=== PATIENT | male | born 1945 | race Caucasian/White ===

== ENCOUNTER 2021-03-03 11:38 | Emergency (ER) | payer MEDICARE, OTHER ==
--- NOTE | 2021-03-03 12:40 | EDM.PDOC ---
ED HPI GENERAL MEDICAL PROBLEM - General Chief Complaint: Neuro Symptoms/Deficits Stated Complaint: 1 MONTH POST HORSE ACCIDENT UNSTEADY Time Seen by Provider: 03/03/21 11:50 Source of Information: Reports: Patient, Family History Limitations: Reports: No Limitations, Other (Family reports that the patient has had increased confusion and he is not the best historian.) - History of Present Illness INITIAL COMMENTS - FREE TEXT/NARRATIVE: 75-year-old male presents the emergency department with increased confusion and weakness and an unsteady gait. Pt had horse accident December 29--was seen (and lives) in [place]. Pt states fell off of horse and horse fell onto pt. Pt was unconscious. Pt has frontal and posterior head bleeds. Was seen at the hospital and kept overnight on observation and had a repeat head CT in the morning and family states was discharged to go home as there were no changes. Has been staying with family since February 12--family has noticed pt having unsteady gait, one episode of confusion--was seen in [place]. [id number] has gotten "really bad in last week." [id number] states that pt is "dragging" left leg. Pt slid off of couch yesterday. Patient does admit to taking a blood thinner however he does not know what it is or why he is taking it. Family did not bring current med list with and they are trying to locate it now. Patient denies cardiac history. He denies alcohol use. Denies any blurred vision or double vision. He denies any headache. Denies any ringing in his ears. [ End ] - Related Data Allergies Allergy/AdvReac Type Severity Reaction Status Date / Time rosuvastatin [From Crestor] Allergy Hives Verified 03/03/21 12:01 Home Meds: Home Meds Aspirin 162 mg PO DAILY 03/03/21 [History] Ezetimibe 10 mg PO DAILY 03/03/21 [History] NIFEdipine [Nifedipine ER] 60 mg PO DAILY 03/03/21 [History] RABEprazole Sodium [Aciphex] 20 mg PO DAILY 03/03/21 [History] Simvastatin 40 mg PO DAILY 03/03/21 [History] Past Medical History HEENT History: Reports: Hard of Hearing, Impaired Vision Other HEENT History: wears eyeglasses. Cardiovascular History: Reports: High Cholesterol, Hypertension Musculoskeletal History: Reports: Fracture, Other (See Below) Other Musculoskeletal History: skull fx's, wrist fx Neurological History: Reports: Concussion, Head Trauma, Other (See Below) Other Neuro History: skull fx's, head bleeds. - Infectious Disease History Infectious Disease History: Reports: Chicken Pox, Measles, Mumps - Past Surgical History HEENT Surgical History: Reports: Adenoidectomy, Tonsillectomy GI Surgical History: Reports: Appendectomy Social & Family History - Tobacco Use Tobacco Use Status *Q: Never Tobacco User Second Hand Smoke Exposure: No - Caffeine Use Caffeine Use: Reports: Coffee - Recreational Drug Use Recreational Drug Use: No ED ROS GENERAL - Review of Systems Review Of Systems: Comprehensive ROS is negative, except as noted in HPI. ED EXAM, HEAD INJURY - Physical Exam Exam: See Below Exam Limited By: No Limitations General Appearance: Alert, WD/WN, No Apparent Distress Head: Atraumatic, Normocephalic Eyes: Bilateral Eye: EOMI, PERRL Ears: Normal External Exam, Hearing Grossly Normal Nose: Normal Inspection Throat/Mouth: Normal Inspection, Normal Lips, Normal Voice, No Airway Compromise Neck: Non-Tender, Full Range of Motion, Normal Inspection Respiratory: No Respiratory Distress, Lungs Clear, Normal Breath Sounds, No Accessory Muscle Use, Chest Non-Tender Cardiovascular: Normal Peripheral Pulses, Regular Rate, Rhythm, No Edema, Systolic Murmur (Grade 3) GI/Abdominal Exam: Normal Bowel Sounds, Soft, Non-Tender, No Distention (Male) Exam: Deferred Rectal (Males) Exam: Deferred Back Exam: Normal Inspection Extremities: Normal Inspection Neurologic: bookkeeping clerk II-XII nml As Tested, No Motor/Sensory Deficits, Alert, Normal Mood/Affect, Oriented x 3 Skin: Normal Color, Warm/Dry - [place] Coma Score Best Eye Response (Mark): (4) Open Spontaneously Best Verbal Response (Mark): (5) Oriented Best Motor Response ([place]): (6) Obeys Commands [place] Total: 15 Course - Vital Signs Text/Narrative:: Full neuro exam was completed and is essentially unremarkable however upon visiting with the patient it is obvious that he is forgetful and slightly confused. We will order a CT scan of the head and lab studies to include a CBC, CMP, magnesium level, PT/INR and PTT. Family is working on obtaining current med list for the patient. Last Recorded V/S: Last Vital Signs Temp 97.4 F 03/03/21 17:20 Pulse 60 03/03/21 17:20 Resp 16 03/03/21 17:20 BP 137/79 03/03/21 17:20 Pulse Ox 94 L 03/03/21 17:20 - Orders/Labs/Meds Labs: Laboratory Tests 03/03/21 03/03/21 03/03/21 Range/Units 13:36 13:36 13:36 WBC 6.87 (4.23-9.07) K/mm3 RBC 5.58 (4.63-6.08) M/mm3 Hgb 16.9 (13.7-17.5) gm/dl Hct 48.1 (40.1-51.0) % MCV 86.2 (79.0-92.2) fl MCH 30.3 (25.7-32.2) pg MCHC 35.1 (32.2-35.5) g/dl RDW Std Deviation 43.0 (35.1-43.9) fL Plt Count 255 (163-337) K/mm3 MPV 9.9 (9.4-12.3) fl Neut % (Auto) 64.3 (34.0-67.9) % Lymph % (Auto) 20.7 L (21.8-53.1) % Murray % (Auto) 11.9 (5.3-12.2) % Eos % (Auto) 2.3 (0.8-7.0) Baso % (Auto) 0.7 (0.1-1.2) % Neut # (Auto) 4.41 (1.78-5.38) K/mm3 Lymph # (Auto) 1.42 (1.32-3.57) K/mm3 Murray # (Auto) 0.82 (0.30-0.82) K/mm3 Eos # (Auto) 0.16 (0.04-0.54) K/mm3 Baso # (Auto) 0.05 (0.01-0.08) K/mm3 PT 11.3 (9.7-12.0) SECONDS INR 1.06 APTT 27.3 (21.7-31.4) SECONDS Sodium 140 (136-145) mEq/L Potassium 3.7 (3.5-5.1) mEq/L Chloride 106 (98-107) mEq/L Carbon Dioxide 22 (21-32) mEq/L Anion Gap 15.7 H (5-15) BUN 20 H (7-18) mg/dL Creatinine 1.3 (0.7-1.3) mg/dL Est Cr Clr Drug Dosing 48.23 mL/min Estimated GFR (MDRD) 54 (>60) mL/min BUN/Creatinine Ratio 15.4 (14-18) Glucose 108 H (70-99) mg/dL Calcium 9.1 (8.5-10.1) mg/dL Magnesium 2.1 (1.8-2.4) mg/dL Total Bilirubin 0.8 (0.2-1.0) mg/dL AST 32 (15-37) U/L ALT 56 (16-63) U/L Alkaline Phosphatase 75 (46-116) U/L Total Protein 7.5 (6.4-8.2) g/dl Albumin 4.1 (3.4-5.0) g/dl Globulin 3.4 gm/dL Albumin/Globulin Ratio 1.2 (1-2) SARS-CoV-2 RNA (CURTIS) (NEGATIVE) 03/03/21 Range/Units 14:50 WBC (4.23-9.07) K/mm3 RBC (4.63-6.08) M/mm3 Hgb (13.7-17.5) gm/dl Hct (40.1-51.0) % MCV (79.0-92.2) fl MCH (25.7-32.2) pg MCHC (32.2-35.5) g/dl RDW Std Deviation (35.1-43.9) fL Plt Count (163-337) K/mm3 MPV (9.4-12.3) fl Neut % (Auto) (34.0-67.9) % Lymph % (Auto) (21.8-53.1) % Murray % (Auto) (5.3-12.2) % Eos % (Auto) (0.8-7.0) Baso % (Auto) (0.1-1.2) % Neut # (Auto) (1.78-5.38) K/mm3 Lymph # (Auto) (1.32-3.57) K/mm3 Murray # (Auto) (0.30-0.82) K/mm3 Eos # (Auto) (0.04-0.54) K/mm3 Baso # (Auto) (0.01-0.08) K/mm3 PT (9.7-12.0) SECONDS INR APTT (21.7-31.4) SECONDS Sodium (136-145) mEq/L Potassium (3.5-5.1) mEq/L Chloride (98-107) mEq/L Carbon Dioxide (21-32) mEq/L Anion Gap (5-15) BUN (7-18) mg/dL Creatinine (0.7-1.3) mg/dL Est Cr Clr Drug Dosing mL/min Estimated GFR (MDRD) (>60) mL/min BUN/Creatinine Ratio (14-18) Glucose (70-99) mg/dL Calcium (8.5-10.1) mg/dL Magnesium (1.8-2.4) mg/dL Total Bilirubin (0.2-1.0) mg/dL AST (15-37) U/L ALT (16-63) U/L Alkaline Phosphatase (46-116) U/L Total Protein (6.4-8.2) g/dl Albumin (3.4-5.0) g/dl Globulin gm/dL Albumin/Globulin Ratio (1-2) SARS-CoV-2 RNA (CURTIS) Negative (NEGATIVE) Meds: Medications Discontinued Medications Generic Name Dose Route Start Last Admin Trade Name Freq PRN Reason Stop Dose Admin Levetiracetam 1,000 mg/ Sodium 110 mls @ 400 mls/hr 03/03/21 16:50 03/03/21 17:16 Chloride IV 03/03/21 17:04 400 mls/hr ONETIME ONE Administration - Re-Assessments/Exams Free Text/Narrative Re-Assessment/Exam: 03/03/21 13:37 [facility] Calls to inform me that the patient has bilateral acute/subacute subdural hematomas with no shift. I did clarify the patient's med list with him. He takes 2 baby aspirin daily in addition to his other medications. 03/03/21 13:45 Spoke with [facility] neurosurgeon, Dr. Mathews and he states that the patient will likely require an ICU bed and they do not have any ICU beds at this time. 03/03/21 13:48 I phoned [facility] call in [place] and they state they do not have any ICU beds available for this patient. 03/03/21 13:49 I phoned [facility] 1 call they are going to have the neurosurgeon review the patient's films and then decide whether or not they can take the patient in their facility. They will phone me back once this has been completed. 03/03/2021 14:43 [facility] call in [place] returned my call and tells me they do not have any beds available for this patient. I phoned [facility] in [facility] and they do not have any beds available for this patient. I then phoned [facility] in [place] and they do not have any beds available at this time. They state they may have a discharge later this evening which would potentially open up a room for the patient. They will call me back. 03/03/21 14:51 Hemotology reveals a WBC of 6.87, hemoglobin 16.9, hematocrit 48.1, platelet count 255 Coagulation reveals a pro time of 11.3, INR 1.06, PTT 27.3 Chemistry reveals a sodium of 140, potassium 3.7, carbon dioxide 22, anion gap 15.7, BUN 20, creatinine 1.3, glucose 108, magnesium 2.1 03/03/21 14:58 Spoke with the [facility] and they are going to attempt to find a bed for this patient as I have called every hospital within the [facility]. 03/03/21 16:[address]: 1. Bilateral subacute/acute subdural hematomas which is larger in size on the right side. 2. Mild effacement of the right lateral ventricle. 3. Other senescent changes as noted above. 03/03/21 16:32 Received a call from [facility] in [facility]. Dr. Yodit Leon, hospitalist has accepted the patient under his care. Patient will be transported via flight. The family has been updated and they are agreeable to this plan. 03/03/21 16:57 [facility] in [facility] calls back and states that the neurosurgeon request that the patient receives a gram of Keppra at this time. They also request that the flight team called directly to the emergency department to give a report. Phone number [phone] the patient will be transported by [facility]. [facility] will transport the patient out to the airport. If there is a delay and the med team has to come into the hospital the bar pilot will time out and it will likely be an 8-hour delay to get this patient to [place]. Departure - Departure Time of Disposition: 17:20 Disposition: DC/Tfer to Acute Hospital 02 Condition: Fair Clinical Impression: Subdural hematoma - Discharge Information Referrals: PCP,Not In Area [Primary Care Provider] - Forms: ED Department Discharge Sepsis Event Note (ED) - Evaluation Sepsis Screening Result: No Definite Risk
--- NOTE | 2021-03-03 15:34 | CT ---
Head CT Technique: Multiple axial sections through the brain were obtained. Intravenous contrast was not utilized. Reconstructed coronal and sagittal's were obtained. Comparison: No prior intracranial imaging is available. Findings: Subdural hematoma is seen on the right side. This appears acute and subacute which causes effacement of the sulci within the right frontal and parietal regions. Thickness of this finding measures around 2.0 cm. Smaller left-sided subdural hematoma is seen within the parietal region which has a thickness of 2.1 cm. Mild compression is seen upon the right lateral ventricle. No definite abnormal parenchymal densities are seen. No midline shift is seen. Atherosclerotic calcification is seen within the vertebral vessels and within the carotid siphon. Mild age related atrophy is seen. Bone window settings were reviewed. Visualized paranasal sinuses and mastoid sinuses show nothing acute. No acute calvarial abnormality is seen. Impression: 1. Bilateral subacute/acute subdural hematomas which is larger in size on the right side. 2. Mild effacement of the right lateral ventricle. 3. Other senescent change as noted above. Diagnostic code #5 I agree with preliminary report from [facility], finalized on 03/03/21, 2:38 PM CDT, code 1
[2021-03-03] MEDS ORDERED: levETIRAcetam 1,000 MG in Sodium Chloride 0.9% 100 ML IV ONE (16:50)
== END 2021-03-03 17:20 ==
LOC: JD.ED 11:38
DX: S06.5X9A Traumatic subdural hemorrhage with loss of consciousness of unspecified duration, initial encounter (principal); E78.00 Pure hypercholesterolemia, unspecified; I10 Essential (primary) hypertension; Z79.82 Long term (current) use of aspirin; Z79.899 Other long term (current) drug therapy; Z88.8 Allergy status to other drugs, medicaments and biological substances; Z20.822 Contact with and (suspected) exposure to COVID-19; W17.89XA Other fall from one level to another, initial encounter
CPT/HCPCS: 36415; 70450; 80053; 83735; 85025; 85610; 85730; 96374; 99285; J1953; U0002

== ENCOUNTER 2021-10-30 20:09 | Emergency (ER) | payer MEDICARE, OTHER | END 2021-10-30 22:29 | disposition home or self-care (01) | LOC: JD.ED 20:09 | DX: I11.9 Hypertensive heart disease without heart failure (principal); E78.00 Pure hypercholesterolemia, unspecified; Z88.8 Allergy status to other drugs, medicaments and biological substances; Z79.02 Long term (current) use of antithrombotics/antiplatelets; Z79.899 Other long term (current) drug therapy; Z79.84 Long term (current) use of oral hypoglycemic drugs | CPT/HCPCS: 36415; 70450; 70450-26; 80053; 85025; 99284-25 ==

== ENCOUNTER 2021-11-02 17:19 | Emergency (ER) | payer MEDICARE, OTHER | END 2021-11-02 21:30 | disposition home or self-care (01) | LOC: JD.ED 17:19 | DX: R47.81 Slurred speech (principal); Z88.8 Allergy status to other drugs, medicaments and biological substances; Z79.84 Long term (current) use of oral hypoglycemic drugs; Z79.02 Long term (current) use of antithrombotics/antiplatelets; Z79.899 Other long term (current) drug therapy | CPT/HCPCS: 36415; 70450; 70450-26; 70496; 70496-26; 70498; 70498-26; 71045; 71045-26; 80053; 84484; 85025; 85610; 93005; 99285-25 ==